=== PATIENT | female | born 1990 | race Caucasian/White ===

== ENCOUNTER → 2018-02-07 | Outpatient (CLI) | payer OTHER | LOC: HPND 09:36 | PROVIDERS: ATTEND Family Medicine | DX: O35.1XX0 Maternal care for (suspected) chromosomal abnormality in fetus, not applicable or unspecified (principal); O09.32 Supervision of pregnancy with insufficient antenatal care, second trimester; Z36.87 Encounter for antenatal screening for uncertain dates; O36.62X0 Maternal care for excessive fetal growth, second trimester, not applicable or unspecified | CPT/HCPCS: 76805 ==

== ENCOUNTER → 2018-03-06 | Outpatient (CLI) | payer MEDICAID, OTHER | LOC: HPND 09:13 | PROVIDERS: ATTEND Family Medicine | DX: O35.1XX0 Maternal care for (suspected) chromosomal abnormality in fetus, not applicable or unspecified (principal); O09.32 Supervision of pregnancy with insufficient antenatal care, second trimester | CPT/HCPCS: 76816 ==

== ENCOUNTER 2018-06-08 09:47 | Inpatient (IN) ==
--- NOTE | 2018-06-08 10:58 | P.PN ---
Subjective Interval history: Patient is a IUP at 39.6. Her course has been comp gated by GBS positive. She presents in active labor with reassuring heart tones. We discussed the goal of a healthy by vaginal delivery. We discussed the risks and benefits of vaginal delivery as well as the risks, benefits, and alternatives to delivery should it be indicated. Risks of delivery include but are not limited to pain, infection, bleeding, injury to other organs like the bladder/bowel/nerves/vessels, injury to the baby, need for hysterectomy, need for repeat operation, need for blood transfusion, wound infection/breakdown, and other possible risks. All the patient's questions and those of her family were answered. Will continue monitoring, start antibiotics for GBS prophylaxis, and expectant management at this time. Physical Exam Vital signs: Vital Signs 06/08/18 10:07 06/08/18 10:47 Pulse Rate 93 H 81 Blood Pressure 140/83 137/79 Intake & Output 06/07/18 06/08/18 06/08/18 18:59 06:59 18:59 Weight 73.936 kg
--- NOTE | 2018-06-08 11:02 | ED ---
History of Present Illness Primary Care Physician: Jared Fields Chief Complaint: contractions History of Present Illness: 28-year-old G1 at 39/6 presenting to the OB ED with complaints of contractions. Patient states that she has been having contractions every 15 minutes of becoming more intense and frequent. Denies any gush of fluid, vaginal bleeding or decreased movement. Patient states that she has had an uncomplicated aside from being GBS positive. Denies any fever, chills, chest pain shortness of breath, nausea vomiting, dysuria. Patient is followed by Dr. Lind - Inpatient Certification I certify that the inpatient services were ordered in accordance with Medicare regulations governing the order. This includes certification that hospital inpatient services are reasonable and necessary and in the case of services not specified as inpatient-only under 42 CFR 419.22(n), that they are appropriately provided as inpatient services in accordance to with the 2-midnight benchmark under 43 CFR 412.3(e) Review of Systems All other systems reviewed negative except as stated in HPI PMFSH - Medical / Surgical Hx Neg / Unobtainable Medical Problems Denied: Yes Surgical History: No Previous Surgery - Family History Family History: Family History (Last Updated 06/08/18 @ 11:14 by Elmo Dan MD, R2) Other Heart disease Hypertension - Tobacco History Smoking Status: Never smoker - Alcohol History How Often Do You Have a Drink Containing Alcohol: Never - Substance Use History Substance History: No History of Abuse Medications and Allergies Allergies Allergy/AdvReac Type Severity Reaction Status Date / Time No Known Allergies Allergy Unverified 06/08/18 10:14 Exam Vital signs: Vital Signs 06/08/18 10:07 06/08/18 10:47 Pulse Rate 93 H 81 Blood Pressure 140/83 137/79 Intake & Output 06/07/18 06/08/18 06/08/18 18:59 06:59 18:59 Weight 73.936 kg Narrative: GENERAL: Well-nourished, well-developed patient. SKIN: Warm and dry. HEAD: Normocephalic and atraumatic. EYES: No scleral icterus. No injection or drainage. ENT: No nasal drainage noted. Mucous membranes pink. Airway patent. NECK: Supple, trachea midline. No JVD. CARDIOVASCULAR: Regular rate and rhythm without murmurs, gallops, or rubs. RESPIRATORY: Breath sounds equal bilaterally. No accessory muscle use. ABDOMEN/GI: Abdomen soft, non-tender, bowel sounds present, no rebound, no guarding Gravid to 39 weeks size GENITOURINARY: External Genitalia: intact and normal in appearance Cervix: Midposition Dilatation: 5 Effacement: 100 Station: -1 Presentation: Vertex Membranes: Intact Uterine Contractions: Every 2-3 minutes FHT's: Category: 1 Baseline: 125 Reactive: y Variability: Moderate Decels: Absent EXTREMITIES: No cyanosis or edema. BACK: Nontender without obvious deformity. No CVA tenderness. NEUROLOGICAL: Awake and alert. Motor and sensory grossly within normal limits. Five out of 5 muscle strength in all muscle groups. Normal speech. Results - Labs CBC & Chem 7: 06/08/18 10:30 Assessment and Plan - Diagnosis (1) Uterine contractions during Code(s): O62.2 - Other uterine inertia Status: Acute Plan: 28-year-old G1 at 39/6 presenting to the OB ED with contractions. Found to be 5 /100/-1 and cristhian every 2-3 minutes on the monitor with category 1 tracing -Admit to L&D for anticipated vaginal delivery -GBS positive, will start penicillin -Consider adding Pitocin after the first dose of penicillin is completed -Otherwise routine labor and delivery orders -Seen and discussed with Dr. Thorpe - Attending Attestation The patient was seen and examined by me and I participated in all fuentes decision making. Reassuring heart tones, admit for labor at term. [facility] Discharge Plan - Discharge Order Discharge Orders: Discharge Order (Routine); Ordered 06/10/18 Ordered By: Ruel Puente - Physicians Team Primary Care Provider: Jared Fields Attending Provider: Wanda Thorpe
[2018-06-08] MEDS ORDERED: Penicillin G Potassium Inj 5,000,000 UNIT in Sodium Chloride 0.9% Inj 100 ML IV.SIG ONE (11:03)
[2018-06-08] MEDS ORDERED: fentaNYL Citrate Inj 100 MCG/2 ML Ampul IV.PUSH PRN (11:03)
[2018-06-08] MEDS ORDERED: Oxytocin 30 Units/500ml Premix 30 UNITS/500 ML BAG IV.SIG ONE (11:03)
[2018-06-08] MEDS ORDERED: Naloxone Inj 0.4 MG/ML Vial IV.PUSH PRN ×2 (11:03→17:32)
[2018-06-08] MEDS ORDERED: Sod Chloride 0.9% Inj 1,000 ML IV.CONT PRN (11:03)
[2018-06-08] MEDS ORDERED: Sodium Chlor 0.9% Inj 500 ML IV.SIG PRN (11:03)
[2018-06-08] MEDS ORDERED: Citric Acid/Sodium Citrate Liq 30 ML UDC PO SCH (11:15)
--- NOTE | 2018-06-08 11:22 | P.HPOB ---
Chief Complaint: contractions History of Present Illness: 28-year-old G1 at 39/6 presenting to the OB ED with complaints of contractions. Patient states that she has been having contractions every 15 minutes of becoming more intense and frequent. Denies any gush of fluid, vaginal bleeding or decreased movement. Patient states that she has had an uncomplicated aside from being GBS positive. Denies any fever, chills, chest pain shortness of breath, nausea vomiting, dysuria. Patient is followed by Dr. Lind - Inpatient Certification I certify that the inpatient services were ordered in accordance with Medicare regulations governing the order. This includes certification that hospital inpatient services are reasonable and necessary and in the case of services not specified as inpatient-only under 42 CFR 419.22(n), that they are appropriately provided as inpatient services in accordance to with the 2-midnight benchmark under 43 CFR 412.3(e) Review of Systems All other systems reviewed negative except as stated in HPI PMFSH - Medical / Surgical Hx Neg / Unobtainable Medical Problems Denied: Yes Surgical History: No Previous Surgery - Family History Family History: Family History (Last Updated 06/08/18 @ 11:14 by Elmo Dan MD, R2) Other Heart disease Hypertension - Tobacco History Smoking Status: Never smoker - Alcohol History How Often Do You Have a Drink Containing Alcohol: Never - Substance Use History Substance History: No History of Abuse Medications and Allergies Allergies Allergy/AdvReac Type Severity Reaction Status Date / Time No Known Allergies Allergy Unverified 06/08/18 10:14 Exam Vital signs: Vital Signs 06/08/18 10:07 06/08/18 10:47 Pulse Rate 93 H 81 Blood Pressure 140/83 137/79 Intake & Output 06/07/18 06/08/18 06/08/18 18:59 06:59 18:59 Weight 73.936 kg Narrative: GENERAL: Well-nourished, well-developed patient. SKIN: Warm and dry. HEAD: Normocephalic and atraumatic. EYES: No scleral icterus. No injection or drainage. ENT: No nasal drainage noted. Mucous membranes pink. Airway patent. NECK: Supple, trachea midline. No JVD. CARDIOVASCULAR: Regular rate and rhythm without murmurs, gallops, or rubs. RESPIRATORY: Breath sounds equal bilaterally. No accessory muscle use. ABDOMEN/GI: Abdomen soft, non-tender, bowel sounds present, no rebound, no guarding Gravid to 39 weeks size GENITOURINARY: External Genitalia: intact and normal in appearance Cervix: Midposition Dilatation: 5 Effacement: 100 Station: -1 Presentation: Vertex Membranes: Intact Uterine Contractions: Every 2-3 minutes FHT's: Category: 1 Baseline: 125 Reactive: y Variability: Moderate Decels: Absent EXTREMITIES: No cyanosis or edema. BACK: Nontender without obvious deformity. No CVA tenderness. NEUROLOGICAL: Awake and alert. Motor and sensory grossly within normal limits. Five out of 5 muscle strength in all muscle groups. Normal speech. Assessment and Plan - Diagnosis (1) Uterine contractions during Code(s): O62.2 - Other uterine inertia Status: Acute Plan: 28-year-old G1 at 39/6 presenting to the OB ED with contractions. Found to be 5 /100/-1 and cristhian every 2-3 minutes on the monitor with category 1 tracing -Admit to L&D for anticipated vaginal delivery -GBS positive, will start penicillin -Consider adding Pitocin after the first dose of penicillin is completed -Otherwise routine labor and delivery orders -Seen and discussed with Dr. Thorpe The patient was seen and examined by me and I participated in all fuentes decision making. Reassuring heart tones, admit for labor at term. SMS
[2018-06-08] MEDS: fentaNYL Citrate Inj 100 MCG/2 ML Ampul IV.PUSH PRN ×2 (11:29→13:37)
[2018-06-08 11:51] LABS: Baso # (Auto) 0.1 th/mm3 (0.0-0.2); Baso % (Auto) 0.5 % (0.0-2.0); Eos % (Auto) 0.2 % (0.0-4.0); Hematocrit 36.9 % (35.0-46.0); Hemoglobin 12.5 gm/dL (11.6-15.3); Lymph # (Auto) 1.8 th/mm3 (1.0-4.8); Lymph % (Auto) 14.4 % (9.0-44.0); Mean Corpuscular HGB Conc 33.8 % (32.0-36.0); Mean Corpuscular Hemoglobin 32.9 pg (27.0-34.0); Mean Corpuscular Volume 97.4 fL (80.0-100.0); Mean Platelet Volume 9.7 fL (7.0-11.0); Mono # (Auto) 0.8 th/mm3 (0.0-0.9); Mono % (Auto) 6.7 % (0.0-8.0); Neut # (Auto) 9.7 th/mm3 (1.8-7.7); Neut % (Auto) 78.2 % (16.0-70.0); Platelet Count 256 th/mm3 (150-450); Red Blood Count 3.79 mil/mm3 (4.00-5.30); Red Cell Distribution Width 13.6 % (11.6-17.2); White Blood Count 12.4 th/mm3 (4.0-11.0)
[2018-06-08] MEDS ORDERED: fentaNYL 2MCG-Bupiv 0.125% Epi 150 ML EPIDURAL ONE (12:46)
--- NOTE | 2018-06-08 13:35 | P.OBLABOR ---
Subjective Interval history: Patient is cristhian every 2-3 minutes, describes it as uncomfortable. No other problems or complaints. Membranes are still intact. Objective Vital Signs: Vital Signs - 8 hr 06/08/18 10:07 06/08/18 10:47 06/08/18 12:07 Pulse Rate 93 H 81 83 Respiratory Rate Blood Pressure 140/83 137/79 137/86 06/08/18 12:15 Pulse Rate Respiratory Rate 18 Blood Pressure Objective: Pelvic Exam: Cervix: [midline] Dilatation: [7 cm] Effacement: [100] Station: [-1] Presentation: [vertex] Membranes: [intact ] Uterine Contractions: [2-3 min] FHT's: Category: [1] Baseline: [120] Reactive: [yes] Variability: [mod] Decels: [none] Assessment and Plan - Diagnosis (1) with 39 completed weeks gestation Code(s): Z3A.39 - 39 weeks gestation of Status: Acute Plan: 28 y/o @39/6 wks in active phase of labor. FHT reassuring. Cat 1, /-1. Receiving PCN for GBS+. Pt requests epidural, will administer. - Expectant management
[2018-06-08] MEDS ORDERED: Lidocaine 1%/Epinephrine 1:100,000 Inj 20 ML Vial ONE (14:00)
[2018-06-08] MEDS ORDERED: Lidocaine PF 1% Inj 30 ML Vial ONE (14:00)
[2018-06-08 14:06] LABS: Amphetamine Urine With Conf Neg (Neg); Benzodiazepine Urine With Conf Neg (Neg)
[2018-06-08 14:07] LABS: Bacteria,Urine Few /hpf; Bilirubin,Urine Negative (Negative); Clarity,Urine Clear (Clear); Color,Urine Straw (Yellw/Straw); Glucose,Urine (UA) Negative (Negative); Leukocyte Esterase,Urine Moderate (Negative); Mucus,Urine Few /lpf (Occasional); Nitrite,Urine Negative (Negative); Specific Gravity,Urine 1.006 (1.002-1.035); Squamous Epithelial Cell,Urine 2 /hpf (0-5)
[2018-06-08] MEDS ORDERED: Penicillin G Potassium Inj 2,500,000 UNIT in Sodium Chlor 0.9% Inj 100 ML IV.SIG SCH (15:00)
--- NOTE | 2018-06-08 15:24 | P.OBLABOR ---
Subjective Interval history: No complaints, post-epidural. Objective Vital Signs: Vital Signs - 8 hr 06/08/18 10:07 06/08/18 10:47 06/08/18 12:07 Pulse Rate 93 H 81 83 Respiratory Rate Blood Pressure 140/83 137/79 137/86 06/08/18 12:15 06/08/18 13:42 Pulse Rate 92 H Respiratory Rate 18 Blood Pressure 134/72 Objective: Pelvic Exam: Cervix: [midline] Dilatation: [6-7] Effacement: [100] Station: [-1] Presentation: [vertex] Membranes: [ ruptured @1519] Uterine Contractions: [yes] FHT's: Category: [1] Baseline: [120] Reactive: [yes] Variability: [mod] Decels: [no] Assessment and Plan - Diagnosis (1) with 39 completed weeks gestation Code(s): Z3A.39 - 39 weeks gestation of Status: Acute Plan: 28 y/o @39/6 wks in active phase of labor. FHT reassuring. Cat 1, 6-7/100/-1. GBS+, epidural placed. - Receiving 2nd dose PCN - Ruptured during exam. Will place IUPC - If no progress in next 1-2 hrs, start Pit ANUSHA Thorpe
[2018-06-08] MEDS ORDERED: Oxytocin 30 Units/500ml Premix 30 UNITS/500 ML BAG IV.SIG PRN (15:52)
[2018-06-08] MEDS ORDERED: Measles/Mumps/Rubella Vaccine Inj 0.5 ML Vial SQ ONE (16:00)
[2018-06-08] MEDS ORDERED: Diphtheria/Tetanus/Pertussis Vaccine Inj 0.5 ML Syringe IM ONE (16:00)
[2018-06-08] MEDS ORDERED: fentaNYL Citrate Inj 100 MCG/2 ML Ampul EPIDURAL ONE (17:00)
[2018-06-08] MEDS ORDERED: fentaNYL 2MCG-Bupiv 0.125% Epi 150 ML EPIDURAL PRN (17:00)
--- NOTE | 2018-06-08 17:03 | P.PN ---
Subjective Interval history: OBHG Attending The patient progressed to complete/complete/+1 and commence spontaneous maternal expulsive efforts. The head delivered atraumatically and spontaneously followed by atraumatic and spontaneous delivery of the anterior shoulder remainder of the . The fetus had reassuring heart tones throughout. The was placed on the maternal abdomen as it was vigorous at delivery. The nose mouth were suctioned with the bulb suction and the cord doubly clamped and cut after 45 second delay. Cord blood was obtained for the nursery and the placenta delivered spontaneously. The placenta appeared to be intact. No lacerations were noted. Apgars 8/9. EBL 150 cc. Both and mother are doing well. I was present and scrubbed for the entire procedure. Physical Exam Vital signs: Vital Signs 06/08/18 10:07 06/08/18 10:15 06/08/18 10:47 Temperature 98.1 F Pulse Rate 93 H 90 81 Respiratory Rate Blood Pressure 140/83 120/63 137/79 06/08/18 12:07 06/08/18 12:15 06/08/18 13:42 Temperature Pulse Rate 83 92 H Respiratory Rate 18 Blood Pressure 137/86 134/72 06/08/18 14:13 06/08/18 15:25 06/08/18 15:40 Temperature Pulse Rate 91 H 86 88 Respiratory Rate Blood Pressure 137/87 129/73 134/77 Intake & Output 06/07/18 06/08/18 06/08/18 18:59 06:59 18:59 Weight 73.936 kg Results - Labs CBC & Chem 7: 06/08/18 10:30 Laboratory Results - last 24 hr 06/08/18 06/08/18 06/08/18 10:30 10:30 10:30 WBC 12.4 H RBC 3.79 L Hgb 12.5 Hct 36.9 MCV 97.4 MCH 32.9 MCHC 33.8 RDW 13.6 Plt Count 256 MPV 9.7 Neut % (Auto) 78.2 H Lymph % (Auto) 14.4 [place] % (Auto) 6.7 Eos % (Auto) 0.2 Baso % (Auto) 0.5 Neut # (Auto) 9.7 H Lymph # (Auto) 1.8 [place] # (Auto) 0.8 Eos # (Auto) 0.0 Baso # (Auto) 0.1 WBC Differential . Differential Comment Auto diff final Urine Color Urine Clarity Urine pH Ur Specific [place] Urine Protein Urine Glucose (UA) Urine Ketones Urine Occult Blood Urine Nitrate Urine Bilirubin Urine Urobilinogen Ur Leukocyte Esterase Urine RBC Urine WBC Ur Squamous Epith Cells Urine Bacteria Urine Mucus Micro UA Comment Ur Microscopic Review Urine Culture Comments Urine Opiates Screen Neg Ur Barbiturates Screen Neg Ur Amphetamine Screen Neg U Benzodiazepines Scrn Neg Urine Cocaine Screen Neg U Cannabinoids Screen Neg Blood Type B Positive 06/08/18 10:30 WBC RBC Hgb Hct MCV MCH MCHC RDW Plt Count MPV Neut % (Auto) Lymph % (Auto) [place] % (Auto) Eos % (Auto) Baso % (Auto) Neut # (Auto) Lymph # (Auto) [place] # (Auto) Eos # (Auto) Baso # (Auto) WBC Differential Differential Comment Urine Color Straw Urine Clarity Clear Urine pH 7.0 Ur Specific [place] 1.006 Urine Protein Negative Urine Glucose (UA) Negative Urine Ketones Negative Urine Occult Blood Negative Urine Nitrate Negative Urine Bilirubin Negative Urine Urobilinogen Less than 2 Ur Leukocyte Esterase Moderate H Urine RBC Less than 1 Urine WBC 2 Ur Squamous Epith Cells 2 Urine Bacteria Few H Urine Mucus Few H Micro UA Comment Culture not ind Ur Microscopic Review Not Reportable Urine Culture Comments Culture not ind Urine Opiates Screen Ur Barbiturates Screen Ur Amphetamine Screen U Benzodiazepines Scrn Urine Cocaine Screen U Cannabinoids Screen Blood Type
--- NOTE | 2018-06-08 17:16 | P.OBDELI ---
Weeks Gestation: 39 Anesthesia: Epidural Episiotomy: none Vaginal Delivery: Normal Presentation: Occiput anterior Nuchal Cord: None Delayed Cord Clamping (45 sec): Yes Placenta: Spontaneous delivery Laceration: None Infant: Female Infant Female A Delivery Date: 06/08/18 Delivery Time: 16:51 Weight: 3010 kg score (1 min): 8 score (5 min): 9
[2018-06-08] MEDS ORDERED: Oxytocin 30 Units/500ml Premix 30 UNITS/500 ML BAG IV.CONT PRN (17:32)
[2018-06-08] MEDS ORDERED: Witch Hazel 50%/Glyderin 12.5% 40 Pad Jar RECTAL PRN (17:32)
[2018-06-08] MEDS ORDERED: Bisacodyl 10 MG Supp RECTAL PRN (17:32)
[2018-06-08] MEDS ORDERED: Zolpidem Tartrate 5 MG Tablet PO PRN (17:32)
[2018-06-08] MEDS ORDERED: Acetaminophen 325 MG Tablet PO PRN (17:32)
[2018-06-08] MEDS ORDERED: Benzocaine 20% Top Spray 60 ML Can TOPICAL PRN (17:32)
[2018-06-09] MEDS: Senna/Docusate Sodium 8.6/50 MG Tablet PO SCH ×2 (07:55→11:07)
--- NOTE | 2018-06-09 09:56 | P.PNOB ---
Subjective Post day: 1 Interval history: Patient is a 28-year-old delivered at 39 weeks and 6 days. Patient is day 1 after . Patient's pain is well-controlled. Patient reports minimal bleeding. Patient reports eating and drinking without any nausea or vomiting. Patient has passed gas but has not had a bowel movement. Patient denies chest pain and shortness of breath. Patient has been ambulating; she denies lower extremity pain. Patient reports desire for contraception, which she will discuss with her PCP at her first follow-up visit. Patient has decided to breast-feed. Objective Vital Signs/I&O: Vital Signs 06/08/18 10:07 06/08/18 10:15 06/08/18 10:47 Temperature 98.1 F Pulse Rate 93 H 90 81 Respiratory Rate Blood Pressure 140/83 120/63 137/79 06/08/18 12:07 06/08/18 12:15 06/08/18 13:42 Temperature Pulse Rate 83 92 H Respiratory Rate 18 Blood Pressure 137/86 134/72 06/08/18 13:55 06/08/18 14:13 06/08/18 15:25 Temperature Pulse Rate 91 H 91 H 86 Respiratory Rate Blood Pressure 137/87 129/73 06/08/18 15:40 06/08/18 16:45 06/08/18 17:31 Temperature Pulse Rate 88 92 H 104 H Respiratory Rate Blood Pressure 134/77 118/65 115/64 06/08/18 17:40 06/08/18 18:00 06/08/18 18:15 Temperature 97.8 F Pulse Rate 101 H 89 Respiratory Rate 18 Blood Pressure 124/66 125/69 06/08/18 18:45 06/08/18 19:00 06/08/18 19:24 Temperature Pulse Rate 99 H 97 H 105 H Respiratory Rate 18 Blood Pressure 122/65 126/80 139/69 06/08/18 19:40 Temperature 97.9 F Pulse Rate 101 H Respiratory Rate 18 Blood Pressure 132/74 Result Diagrams: 06/08/18 10:30 Objective Remarks: GENERAL: Well-nourished, well-developed patient. CARDIOVASCULAR: Regular rate and rhythm without murmurs, gallops, or rubs. RESPIRATORY: Breath sounds equal bilaterally. No accessory muscle use. ABDOMEN/GI: Abdomen soft, non-tender. Fundus: Firm, non-tender at umbilicus. GENITOURINARY: Light to moderate bleeding. EXTREMITIES: No cyanosis or edema, non-tender, without signs of DVT. Medications and IVs: Active Medications Acetaminophen (Tylenol) 650 mg PO Q4H PRN PRN Reason: PAIN SCALE 1 TO 2 Al Hydroxide/Mg Hydroxide (Milk Of Magnesia Liq) 30 ml PO Q12H PRN PRN Reason: Mild Constipation Benzocaine (Americaine 20% Top [place]) 1 spray TOPICAL Q4H PRN PRN Reason: For Perineum Discomfort Bisacodyl (Dulcolax Supp) 10 mg RECTAL DAILY PRN PRN Reason: SEVERE CONSITIPATION Citric Acid/Sodium Citrate (Sodium Citrate/Citric Acid Liq) 30 ml PO SYSTEM CONFIGURATION SPECIALIST [facility] Stop: 06/12/18 11:14 Ephedrine Sulfate (Ephedrine/Ns Syringe) 10 mg IV.PUSH UNSCH PRN PRN Reason: SEE LABEL COMMENTS Stop: 06/09/18 17:00 Fentanyl Citrate (Fentanyl Inj) 50 mcg IV.PUSH Q1H PRN PRN Reason: Pain Scale 3 - 5 Fentanyl Citrate (Fentanyl Inj) 100 mcg IV.PUSH Q1H PRN PRN Reason: PAIN SCALE 6 TO 10 Last Admin: 06/08/18 13:37 Dose: 100 mcg Lactated Ringer's (Lr 1000 Ml Inj) 1,000 mls @ 125 mls/hr IV.CONT .Q8H [facility] Last Admin: 06/09/18 07:54 Dose: Not Given Lactated Ringer's (Lr 1000 Ml Inj) 1,000 mls @ 3,000 mls/hr IV.SIG UNSCH PRN PRN Reason: compromise or epidural Sodium Chloride (Ns Inj) 500 mls @ 1,000 mls/hr IV.SIG UNSCH PRN PRN Reason: SEE LABEL COMMENTS Sodium Chloride (Ns Inj) 1,000 mls @ 100 mls/hr IV.CONT .Q10H PRN PRN Reason: SEE LABEL COMMENTS Oxytocin (Pitocin 30 Units/Ns 500 Ml Premix) 30 units in 500 mls @ 2 mls/hr IV.SIG TITRATE PRN; Protocol PRN Reason: For induction of labor Last Admin: 06/08/18 16:03 Dose: 2 milliunit/min, 2 mls/hr Fentanyl/Bupivacaine/Sodium Chlor (Fentanyl 2 Mcg-Bupiv 0.125% Epi) 150 mls @ 8 mls/hr EPIDURAL PRN PRN PRN Reason: for Labor Pain Oxytocin (Pitocin 30 Units/Ns 500 Ml Premix) 30 units in 500 mls @ 100 mls/hr IV.CONT UNSCH PRN PRN Reason: Heavy bleeding Ibuprofen (Motrin) 800 mg PO Q8H PRN PRN Reason: For Cramping Lactulose (Lactulose Liq) 30 ml PO DAILY PRN PRN Reason: SEVERE CONSITIPATION Lidocaine HCl (Xylocaine 1% Inj) 10 ml INFILTRATN PRN PRN PRN Reason: For episiotomy repair Stop: 06/10/18 11:02 Lidocaine HCl (Xylocaine 1% Inj) 0.1 ml I-DERMAL PRN PRN PRN Reason: For IV start Stop: 06/11/18 11:02 Miscellaneous Information (Misc Information) 1 each OTHER UNSCH PRN PRN Reason: SEE LABEL COMMENTS Stop: 06/09/18 17:00 Miscellaneous Information (Misc Information) 1 each OTHER UNSCH PRN PRN Reason: SEE LABEL COMMENTS Stop: 06/09/18 17:00 Naloxone HCl (Narcan Inj) 0.1 mg IV.PUSH Q2M PRN PRN Reason: for opiate reversal Naloxone HCl (Narcan Inj) 0.1 mg IV.PUSH Q2M PRN PRN Reason: for opiate reversal Ondansetron HCl (Zofran Odt) 4 mg PO Q6H PRN PRN Reason: NAUSEA OR VOMITING Senna/Docusate Sodium (Hailey-Colace) 1 tab PO BID [facility] Last Admin: 06/09/18 07:55 Dose: Not Given Sennosides (Senokot) 17.2 mg PO Q12H PRN PRN Reason: Moderate Constipation Sodium Chloride (Ns Flush) 2 ml IV.FLUSH BID [facility] Last Admin: 06/09/18 07:55 Dose: Not Given Sodium Chloride (Ns Flush) 2 ml IV.FLUSH PRN PRN PRN Reason: FLUSH AFTER USING IV ACCESS Witch Ryann/Glycerin (Tucks Pads) 1 applicatio RECTAL QID PRN PRN Reason: HEMORRHOIDS Zolpidem Tartrate (Ambien) 5 mg PO HS PRN PRN Reason: SLEEP Assessment and Plan - Diagnosis (1) Vaginal delivery Code(s): O80 - Encounter for full-term uncomplicated delivery Status: Acute - Plan Patient is a 28-year-old delivered at 39 weeks and 6 days. Patient is day 1 after . Continue routine care. Motrin and Percocet when necessary for pain. Encourage OOB. Pelvic rest for 6 weeks will need follow-up appointment at that time. Contraception: To be discussed with PCP. Anticipate discharge tomorrow. [email or web address] OB hospitalist. - Attending Attestation The patient was seen and examined by me and I participated in all fuentes decision making. Continue routine care. Anticipate discharge home tomorrow. SMS
[2018-06-10] MEDS: Senna/Docusate Sodium 8.6/50 MG Tablet PO SCH (06:05)
[2018-06-10] MEDS ORDERED: medroxyPROGESTERone Acetate Inj 150 MG/ML Syringe IM ONE (08:23)
--- NOTE | 2018-06-10 08:23 | P.PNOB ---
Subjective Post day: 2 Interval history: day #2 AFVSS overnight. Decreased lochia. Denies dysuria. No breast pain. Appetite good. No nausea or vomiting. Ambulating well. Denies calf pain or shortness of breath. Otherwise, she is doing well this morning and has no other complaints. Objective Vital Signs/I&O: Vital Signs 06/09/18 21:00 Temperature 98.5 F Pulse Rate 83 Respiratory Rate 18 Blood Pressure 123/72 Result Diagrams: 06/08/18 10:30 Objective Remarks: GENERAL: Well-nourished, well-developed patient. CARDIOVASCULAR: Regular rate and rhythm without murmurs, gallops, or rubs. RESPIRATORY: Breath sounds equal bilaterally. No accessory muscle use. ABDOMEN/GI: Abdomen soft, non-tender. Fundus: Firm, non-tender at umbilicus. GENITOURINARY: Light to moderate bleeding. EXTREMITIES: No cyanosis or edema, non-tender, without signs of DVT. Medications and IVs: Active Medications Acetaminophen (Tylenol) 650 mg PO Q4H PRN PRN Reason: PAIN SCALE 1 TO 2 Al Hydroxide/Mg Hydroxide (Milk Of Magnesia Liq) 30 ml PO Q12H PRN PRN Reason: Mild Constipation Benzocaine (Americaine 20% [place]) 1 spray TOPICAL Q4H PRN PRN Reason: For Perineum Discomfort Bisacodyl (Dulcolax Supp) 10 mg RECTAL DAILY PRN PRN Reason: SEVERE CONSITIPATION Citric Acid/Sodium Citrate (Sodium Citrate/Citric Acid Liq) 30 ml PO THREE KNIFE TRIMMER [facility] Stop: 06/12/18 11:14 Fentanyl Citrate (Fentanyl Inj) 50 mcg IV.PUSH Q1H PRN PRN Reason: Pain Scale 3 - 5 Fentanyl Citrate (Fentanyl Inj) 100 mcg IV.PUSH Q1H PRN PRN Reason: PAIN SCALE 6 TO 10 Last Admin: 06/08/18 13:37 Dose: 100 mcg Lactated Ringer's (Lr 1000 Ml Inj) 1,000 mls @ 125 mls/hr IV.CONT .Q8H [facility] Last Admin: 06/10/18 07:06 Dose: Not Given Lactated Ringer's (Lr 1000 Ml Inj) 1,000 mls @ 3,000 mls/hr IV.SIG UNSCH PRN PRN Reason: compromise or epidural Sodium Chloride (Ns Inj) 500 mls @ 1,000 mls/hr IV.SIG UNSCH PRN PRN Reason: SEE LABEL COMMENTS Sodium Chloride (Ns Inj) 1,000 mls @ 100 mls/hr IV.CONT .Q10H PRN PRN Reason: SEE LABEL COMMENTS Oxytocin (Pitocin 30 Units/Ns 500 Ml Premix) 30 units in 500 mls @ 2 mls/hr IV.SIG TITRATE PRN; Protocol PRN Reason: For induction of labor Last Admin: 06/08/18 16:03 Dose: 2 milliunit/min, 2 mls/hr Fentanyl/Bupivacaine/Sodium Chlor (Fentanyl 2 Mcg-Bupiv 0.125% Epi) 150 mls @ 8 mls/hr EPIDURAL PRN PRN PRN Reason: for Labor Pain Oxytocin (Pitocin 30 Units/Ns 500 Ml Premix) 30 units in 500 mls @ 100 mls/hr IV.CONT UNSCH PRN PRN Reason: Heavy bleeding Ibuprofen (Motrin) 800 mg PO Q8H PRN PRN Reason: For Cramping Lactulose (Lactulose Liq) 30 ml PO DAILY PRN PRN Reason: SEVERE CONSITIPATION Lidocaine HCl (Xylocaine 1% Inj) 10 ml INFILTRATN PRN PRN PRN Reason: For episiotomy repair Stop: 06/10/18 11:02 Lidocaine HCl (Xylocaine 1% Inj) 0.1 ml I-DERMAL PRN PRN PRN Reason: For IV start Stop: 06/11/18 11:02 Naloxone HCl (Narcan Inj) 0.1 mg IV.PUSH Q2M PRN PRN Reason: for opiate reversal Naloxone HCl (Narcan Inj) 0.1 mg IV.PUSH Q2M PRN PRN Reason: for opiate reversal Ondansetron HCl (Zofran Odt) 4 mg PO Q6H PRN PRN Reason: NAUSEA OR VOMITING Senna/Docusate Sodium (Hailey-Colace) 1 tab PO BID [facility] Last Admin: 06/10/18 06:05 Dose: Not Given Sennosides (Senokot) 17.2 mg PO Q12H PRN PRN Reason: Moderate Constipation Sodium Chloride (Ns Flush) 2 ml IV.FLUSH BID [facility] Last Admin: 06/10/18 06:05 Dose: Not Given Sodium Chloride (Ns Flush) 2 ml IV.FLUSH PRN PRN PRN Reason: FLUSH AFTER USING IV ACCESS Witch Ryann/Glycerin (Tucks Pads) 1 applicatio RECTAL QID PRN PRN Reason: HEMORRHOIDS Zolpidem Tartrate (Ambien) 5 mg PO HS PRN PRN Reason: SLEEP Assessment and Plan - Diagnosis (1) Vaginal delivery Code(s): O80 - Encounter for full-term uncomplicated delivery Status: Acute - Plan 28y/o female who is PPD#2 s/p vaginal delivery. -Continue routine care. -Motrin PRN pain. -Encouraged OOB. Advised pelvic rest for 6 wks. -Re: ctrl, she would like Depo-Provera. -D/c likely today. wdw Dr. Cristina Discharge Planning: The exam, history, and the medical decision-making described in the above note were completed with the assistance of the resident physician. I reviewed and agree with the findings presented. I attest that I had a [id number] encounter with the patient on the same day, and personally performed and documented my assessment and findings in the medical record.
== END 2018-06-10 12:34 | disposition home or self-care (01) ==
LOC: HOBED 09:47 → H2E 10:24 → H1EA 19:33
PROVIDERS: ADMIT Obstetrics & Gynecology; ATTEND Obstetrics & Gynecology